=== PATIENT | female | born 1985 | race Caucasian/White ===

== ENCOUNTER 2017-01-06 02:09 | Emergency (ER) | payer OTHER ==
[~2017-01-06 02:09] MED LIST: ALPRAZOLAM0.25 MG PO; ANTIVERT PO; AUGMENTIN875 M1 PO; BACTRIM DS TABL1 TAB PO; CATAFLAM50 MG PO; CIPRO PO; CITALOPRAM HBR40 MG; CYMBALTA PO; DOLOBID500 MG PO; KEFLEX500 M1 PO; KEPPRA500 M1 PO; LORTAB 5/500 TA1 TA1 PO; LORTAB 7.5-5001 TAB PO; METHADONE PO; PYRIDIUM PO; SKELAXIN PO; TOPAMAX PO; WELLBUTRIN XL PO; ZOVIA PO
== END 2017-01-06 02:10 | disposition home or self-care (01) ==
LOC: SED 02:09
DX: H00.014 Hordeolum externum left upper eyelid (principal); K08.89 Other specified disorders of teeth and supporting structures; F17.200 Nicotine dependence, unspecified, uncomplicated
CPT/HCPCS: 99283

== ENCOUNTER 2017-05-23 10:18 | Emergency (ER) | payer OTHER ==
--- NOTE | ~2017-05-23 | CR132 ---
[facility] A Service of [facility] & [facility] RADIOLOGY TEXT RESULTS PATIENT: BJORN GALLEGOS LOCATION: SED : 85 UNIT #: [id number] AGE: [address]: William Milligan MD SEX: F ORDER DR: [id number] [address] [address] [id number] MR#: [id number] #: [id number] NAME: BJORN GALLEGOS. : 1985 SEX: F STUDY DATE/TIME: 05/23/2017 11:15 UNIT: SED ROOM: STUDY DESCRIPTION: CR Forearm 2 View Lt Attending Physician: William Milligan M.D. Ordering Physician: William Milligan M.D. Primary Care Physician: Nisreen Hannah M.D. MEDICAL IMAGING REPORT This report is preliminary unless electronic signature is present. EXAM Left forearm HISTORY Forearm pain and swelling for 3 days, evaluate for possible infection. FINDINGS Two views of the left forearm demonstrates no fracture or dislocation. Bone mineralization appears normal. Wrist and elbow joint appears normal. Soft tissues unremarkable. No radiopaque foreign body or soft tissue gas. IMPRESSION Very subtle skin blistering or swelling and lateral left elbow. No soft tissue gas or foreign body. Dictated by... Delano Lanier M.D. THIS IS AN ELECTRONICALLY VERIFIED REPORT Delano Lanier M.D. at 05/23/2017 4:48 PM KIRILL/grupo TD: 05/23/2017 16:12 JOB #: [id number] MEDICAL IMAGING REPORT Page 1 of 1
[2017-05-23] MEDS ORDERED: NO MEDICATIONS (10:25)
== END 2017-05-23 13:14 | disposition home or self-care (01) ==
LOC: SED 10:18
DX: L02.414 Cutaneous abscess of left upper limb (principal); F31.9 Bipolar disorder, unspecified
CPT/HCPCS: 10060; 73090; 87070; 87077; 87186; 87205; 96372; 99283; J1885